=== PATIENT | male | born 1935 | race Two or more races ===

== ENCOUNTER 2022-01-20 11:29 | Outpatient (CLI) | payer MEDICARE ==
[2022-01-20 12:06] LABS: BASOPHILS % (AUTO) 0.1 % (0-1); EOSINOPHILS # (AUTO) 0.1 X10'3 (0-0.9); EOSINOPHILS % (AUTO) 1.6 % (0-6); HEMATOCRIT 33.6 % (42.0-52.0); HEMOGLOBIN 11.7 g/dl (14.0-17.9); LYMPHOCYTES % (AUTO) 12.4 % (21-51); MEAN CORPUSCULAR HEMOGLOBIN 31.6 PG (27.0-31.0); MEAN CORPUSCULAR HGB CONC 34.9 g/dL (33.0-36.5); MEAN CORPUSCULAR VOLUME 90.5 FL (78-98); MEAN PLATELET VOLUME 7.4 FL (7.4-10.4); MONOCYTES # (AUTO) 0.4 X10'3 (0-0.9); MONOCYTES % (AUTO) 5.3 % (2-12); NEUTROPHILS # (AUTO) 6.2 X10'3 (1.8-7.7); NEUTROPHILS % (AUTO) 80.6 % (42-75); PLATELET COUNT 210 X10'3 (140-440); RED BLOOD COUNT 3.72 X10'6 (4.70-6.10); RED CELL DISTRIBUTION WIDTH 13.1 % (11.5-14.5); WHITE BLOOD COUNT 7.7 X10'3 (4.5-11.0)
[2022-01-20 12:17] LABS: APTT 36 SECONDS (22-32)
[2022-01-20 12:18] LABS: ALBUMIN 4.4 G/DL (3.4-5.0); ANION GAP 11 (8-16); BLOOD UREA NITROGEN 134 MG/DL (7-18); BUN/CREATININE RATIO 44.8 (5.4-32.0); CALCIUM 10.2 MG/DL (8.5-10.1); CHLORIDE 108 MMOL/L (99-107); CHOL/HDL RATIO 3.5 (0.00-4.99); CHOLESTEROL 156 MG/DL (0-200); CREATININE 2.99 MG/DL (0.60-1.10); GLUCOSE 105 MG/DL (70-104); HDL CHOLESTEROL 44 MG/DL (35-60); LDL CHOLESTEROL 80 MG/DL (50-100); POTASSIUM 4.5 MMOL/L (3.5-5.1); SODIUM 140 MMOL/L (135-145); TOTAL CARBON DIOXIDE 21.2 MMOL/L (24-32); TRIGLYCERIDES 152 MG/DL (20-135); eGFR 20 ML/MIN
== END 2022-01-20 23:59 | disposition home or self-care (01) ==
LOC: LAB 11:29 → EDSTATUS 01-24 19:30
PROVIDERS: ATTEND Internal Medicine Interventional Cardiology
DX: E78.49 Other hyperlipidemia (principal); I25.10 Atherosclerotic heart disease of native coronary artery without angina pectoris; I10 Essential (primary) hypertension; R94.30 Abnormal result of cardiovascular function study, unspecified
CPT/HCPCS: 36415; 80048; 80061; 85025; 85610; 85730

== ENCOUNTER → 2023-08-24 | Emergency (ER) | payer MEDICARE ==
[~2023-08-24] VITALS: Ht 180.3 cm; Wt 103.6 kg
[2023-08-24 19:34] VITALS: BP 156/87; PULSE 113; RESP 18; TEMP 97.7; O2SAT 100
== END ==
LOC: ER 19:29
DX: Z79.899 Other long term (current) drug therapy
CPT/HCPCS: 99283